=== PATIENT | female | born 1940 | race Caucasian/White ===

== ENCOUNTER 2017-01-07 21:21 | Emergency (ER) | payer MEDICARE ==
[2017-01-07] MEDS ORDERED: Aspirin Low Dose CHEW TAB* 81 MG PO ONE (21:45)
[2017-01-07 22:31] LABS: Hematocrit 40 % (35-47); Hemoglobin 13.4 g/dl (12.0-16.0); Mean Corpuscular HGB Conc 33 g/dl (31-36); Mean Corpuscular Hemoglobin 29 pg (27-31); Mean Corpuscular Volume 87 fL (80-97); Mean Platelet Volume 10 um3 (7.4-10.4); Red Blood Count 4.67 10^6/ul (4.0-5.4); Red Cell Distribution Width 14 % (10.5-15); White Blood Count 10.9 10^3/ul (3.5-10.8)
--- NOTE | 2017-01-07 22:45 | RAD ---
INDICATION: Constant upper bilateral chest pain/tightness since last night. History of atrial fibrillation. COMPARISON: October 30, 2014 TECHNIQUE: Dual energy PA and routine lateral views of the chest were obtained. REPORT: Elevated lung volumes and mild prominence of the interstitial markings. No compelling alveolar consolidation, focal pulmonary lesion, pleural effusion, or pneumothorax. The heart, pulmonary vasculature, and mediastinal contours are unremarkable. Thoracic degenerative spondylosis. IMPRESSION: Stigmata of probable chronic obstructive pulmonary disease. No acute cardiopulmonary process evident.
[2017-01-07 22:48] LABS: ALT 15 U/L (7-52); Albumin 3.9 g/dL (3.2-5.2); Alkaline Phosphatase 44 U/L (34-104); BUN/Creatinine Ratio 15.8 (8-20); Blood Urea Nitrogen 12 mg/dL (6-24); CO2 Carbon Dioxide 25 mmol/L (22-32); Chloride 105 mmol/L (101-111); EGFR African American 95.7 (>60); EGFR Non-African American 74.4 (>60); Globulin 3.2 g/dL (2-4); Glucose 98 mg/dL (70-100); Sodium 136 mmol/L (133-145); Total Protein 7.1 g/dL (6.4-8.9)
--- NOTE | 2017-01-07 23:06 | ED ---
Caridad Faith Erika, scribed for Merlin Huertas MD on 01/07/17 at 2204 . HPI Chest Pain - HPI Summary HPI Summary: Patient is a 76-year-old female presenting to the ED with a CC of chest tightness. Patient reports that last night, she noticed that her heart felt like it was pounding, and she developed chest tightness. She slept last night, and then went on a 6 mile walk today. Patient reports that the pain was not aggravated by exertion. Pain was present all day, and started to feel like it was gradually worsening this evening, so patient came to the ED. She now states that symptoms have resolved. She did not take any medications for the pain, and did not call her doctor. Patient reports a Hx of A Fib that has been symptomatic in the past, but states that this feels different. Pt denies ever having chest tightness in the past. Pt is followed by her PCP, Dr. Cui, who she most recently saw a few weeks ago for a headache. - History of Current Complaint Chief Complaint: EDChestPainROMI Time Seen by Provider: 01/07/17 21:41 Hx Obtained From: Patient Onset/Duration: Started Days Ago - 1 day, Atraumatic, Resolved Timing: Constant Initial Severity: Mild Current Severity: None Pain Intensity: 0 Pain Scale Used: 0-10 Numeric Chest Pain Location: Diffuse Character: Tightness Aggravating Factor(s): Nothing Alleviating Factor(s): Spontaneous Resolution Associated Signs and Symptoms: Positive: Palpitations - Allergy/Home Medications Allergies/Adverse Reactions: Allergies Allergy/AdvReac Type Severity Reaction Status Date / Time Penicillins [PCN] Allergy Rash Verified 10/30/14 02:05 PMH/Surg Hx/FS Hx/Imm Hx Endocrine/Hematology History: Reports: Hx Thyroid Disease Cardiovascular History: Reports: Hx Atrial Fibrillation, Hx Rheumatic Fever, Other Cardiovascular Problems/Disorders - afib Sensory History: Reports: Hx Contacts or Glasses Opthamlomology History: Reports: Hx Contacts or Glasses - Cancer History Cancer Type, Location and Year: breast CA 1987, 2002, 2012 Hx Chemotherapy: No Hx Radiation Therapy: Yes - Surgical History Surgery Procedure, Year, and Place: 1987- lumpectomy. 2002- lumpectomy. 2012- double mastectomy. hysterectomy Hx Anesthesia Reactions: No Infectious Disease History: No Infectious Disease History: Denies: Traveled Outside the [place] in Last 30 Days - Family History Known Family History: Positive: Cardiac Disease, Hypertension, Diabetes - Social History Lives: With Family Alcohol Use: Daily Alcohol Amount: 1-2 glasses of wine Substance Use Type: Reports: None Hx Tobacco Use: Yes Smoking Status (MU): Former Smoker Type: Cigarettes Amount Used/How Often: <1ppd Have You Smoked in the Last Year: No Review of Systems Negative: Fever Positive: Palpitations, Chest Pain All Other Systems Reviewed And Are Negative: Yes Physical Exam Triage Information Reviewed: Yes Vital Signs On Initial Exam: Initial Vitals Temp Pulse Resp BP Pulse Ox 98.9 F 84 16 170/89 100 01/07/17 21:35 01/07/17 21:35 01/07/17 21:35 01/07/17 21:35 01/07/17 21:35 Vital Signs Reviewed: Yes Appearance: Positive: Well-Appearing, No Pain Distress Skin: Positive: Warm Eyes: Positive: RHETT ENT: Positive: Hearing grossly normal Neck: Positive: Supple Respiratory/Lung Sounds: Positive: Clear to Auscultation, Breath Sounds Present Cardiovascular: Positive: RRR. Negative: Murmur Abdomen Description: Positive: Nontender, Soft Bowel Sounds: Positive: Present Musculoskeletal: Positive: Strength/ROM Intact. Negative: Edema Left, Edema Right Neurological: Positive: Sensory/Motor Intact, Alert, Oriented to Person Place, Time Psychiatric: Positive: Affect/Mood Appropriate Diagnostics - Vital Signs Vital Signs Temp Pulse Resp BP Pulse Ox 01/07/17 21:35 98.9 F 84 16 170/89 100 - Laboratory Lab Results: Lab Results 01/07/17 01/07/17 01/07/17 Range/Units 22:15 22:15 22:15 WBC 10.9 H (3.5-10.8) 10^3/ul RBC 4.67 (4.0-5.4) 10^6/ul Hgb 13.4 (12.0-16.0) g/dl Hct 40 (35-47) % MCV 87 (80-97) fL MCH 29 (27-31) pg MCHC 33 (31-36) g/dl RDW 14 (10.5-15) % Plt Count 184 (150-450) 10^3/ul MPV 10 (7.4-10.4) um3 Neut % (Auto) 63.0 (38-83) % Lymph % (Auto) 23.7 L (25-47) % [place] % (Auto) 10.6 H (1-9) % Eos % (Auto) 1.7 (0-6) % Baso % (Auto) 1.0 (0-2) % Absolute Neuts (auto) 6.9 (1.5-7.7) 10^3/ul Absolute Lymphs (auto) 2.6 (1.0-4.8) 10^3/ul Absolute Monos (auto) 1.1 H (0-0.8) 10^3/ul Absolute Eos (auto) 0.2 (0-0.6) 10^3/ul Absolute Basos (auto) 0.1 (0-0.2) 10^3/ul Absolute Nucleated RBC 0.01 10^3/ul Nucleated RBC % 0.1 INR (Anticoag Therapy) 0.92 (0.89-1.11) Sodium 136 (133-145) mmol/L Potassium TNP Chloride 105 (101-111) mmol/L Carbon Dioxide 25 (22-32) mmol/L Anion Gap TNP BUN 12 (6-24) mg/dL Creatinine 0.76 (0.51-0.95) mg/dL Est GFR ( Amer) 95.7 (>60) Est GFR (Non-Af Amer) 74.4 (>60) BUN/Creatinine Ratio 15.8 (8-20) Glucose 98 (70-100) mg/dL Lactic Acid (0.5-2.0) mmol/L Calcium 9.0 (8.6-10.3) mg/dL Magnesium TNP Total Bilirubin 0.40 (0.2-1.0) mg/dL AST TNP ALT 15 (7-52) U/L Alkaline Phosphatase 44 (34-104) U/L Troponin I 0.00 (<0.04) ng/mL Total Protein 7.1 (6.4-8.9) g/dL Albumin 3.9 (3.2-5.2) g/dL Globulin 3.2 (2-4) g/dL Albumin/Globulin Ratio 1.2 (1-3) 01/07/17 Range/Units 22:15 WBC (3.5-10.8) 10^3/ul RBC (4.0-5.4) 10^6/ul Hgb (12.0-16.0) g/dl Hct (35-47) % MCV (80-97) fL MCH (27-31) pg MCHC (31-36) g/dl RDW (10.5-15) % Plt Count (150-450) 10^3/ul MPV (7.4-10.4) um3 Neut % (Auto) (38-83) % Lymph % (Auto) (25-47) % [place] % (Auto) (1-9) % Eos % (Auto) (0-6) % Baso % (Auto) (0-2) % Absolute Neuts (auto) (1.5-7.7) 10^3/ul Absolute Lymphs (auto) (1.0-4.8) 10^3/ul Absolute Monos (auto) (0-0.8) 10^3/ul Absolute Eos (auto) (0-0.6) 10^3/ul Absolute Basos (auto) (0-0.2) 10^3/ul Absolute Nucleated RBC 10^3/ul Nucleated RBC % INR (Anticoag Therapy) (0.89-1.11) Sodium (133-145) mmol/L Potassium Chloride (101-111) mmol/L Carbon Dioxide (22-32) mmol/L Anion Gap BUN (6-24) mg/dL Creatinine (0.51-0.95) mg/dL Est GFR ( Amer) (>60) Est GFR (Non-Af Amer) (>60) BUN/Creatinine Ratio (8-20) Glucose (70-100) mg/dL Lactic Acid 1.1 (0.5-2.0) mmol/L Calcium (8.6-10.3) mg/dL Magnesium Total Bilirubin (0.2-1.0) mg/dL AST ALT (7-52) U/L Alkaline Phosphatase (34-104) U/L Troponin I (<0.04) ng/mL Total Protein (6.4-8.9) g/dL Albumin (3.2-5.2) g/dL Globulin (2-4) g/dL Albumin/Globulin Ratio (1-3) Result Diagrams: 01/07/17 22:15 01/07/17 23:35 Lab Statement: Any lab studies that have been ordered have been reviewed, and results considered in the medical decision making process. - Radiology CXR Radiology Interpretation Completed By: Radiologist - IMPRESSION: Stigmata of probable chronic obstructive pulmonary disease. No acute cardiopulmonary process evident. - EKG 21:25 Cardiac Rate: NL - at 84 bpm EKG Rhythm: Sinus Rhythm Re-Evaluation - Re-Evaluation First Eval Re-Evaluation Time: 23:59 Change: Improved Comment: Discussed lab, EKG, and CXR results. Will discharge patient at this time with follow up. Recommended pt take it easy Chest Pain Course/Dx - Course Assessment/Plan: A 76 y/o F presents to the ED with a CC of chest tightness starting last night. Chest pain resolved by the time she arrived in the room in the ED, but pt was given 324 mg ASA in the ED. Patient reports a Hx A Fib, but EKG today shows NSR. CXR shows no acute disease. Troponin is 0.00. Patient continues to be asymptomatic in the ED. She will be discharged home with follow up from her PCP or medicaid billing clerk. - Diagnoses Provider Diagnoses: Chest pain Discharge - Discharge Plan Condition: Stable Disposition: HOME Patient Education Materials: Chest Pain (ED) Referrals: Kami Cui MD [Primary Care Provider] - Additional Instructions: Please follow up with your PCP or medicaid billing clerk. The documentation as recorded by the Caridad meek Erika accurately reflects the service I personally performed and the decisions made by me, Merlin Huertas MD.
[2017-01-08 00:08] LABS: Magnesium 1.9 mg/dL (1.9-2.7)
[2017-01-08 01:52] VITALS: BP 131/64
== END 2017-01-08 01:13 | disposition home or self-care (01) ==
LOC: ED 21:21
DX: R07.9 Chest pain, unspecified (principal); I48.91 Unspecified atrial fibrillation; Z79.82 Long term (current) use of aspirin; Z87.891 Personal history of nicotine dependence
CPT/HCPCS: 36415; 71020; 80053; 83605; 83735; 84484; 85025; 85610; 93005; 99284; A9270-GY